=== PATIENT | female | born 1980 | race Caucasian/White ===

== ENCOUNTER → 2024-06-18 09:10 | Outpatient (REF) | payer BC, SELFPAY | LOC: HWWDC 09:10 | PROVIDERS: ATTENDING PHYSICIAN Internal Medicine | DX: Z12.31 Encounter for screening mammogram for malignant neoplasm of breast (principal) | CPT/HCPCS: 77063; 77067 ==

== ENCOUNTER → 2025-07-09 15:01 | Outpatient (REF) | payer BC, SELFPAY | LOC: HWWDC 15:01 | PROVIDERS: ATTENDING PHYSICIAN Internal Medicine | DX: Z12.31 Encounter for screening mammogram for malignant neoplasm of breast (principal) | CPT/HCPCS: 77063; 77067 ==

== ENCOUNTER → 2025-09-03 15:45 | Outpatient (REF) | payer BC, SELFPAY | LOC: HWRAD 15:45 | PROVIDERS: ATTENDING PHYSICIAN Internal Medicine | DX: G89.29 Other chronic pain (principal); M54.50 Low back pain, unspecified; E78.2 Mixed hyperlipidemia | CPT/HCPCS: 72050; 72072; 72100 ==